=== PATIENT | female | born 1960 | race Caucasian/White ===

== ENCOUNTER 2021-06-19 08:14 | Emergency (ER) | payer MEDICAID, OTHER ==
[~2021-06-19] VITALS: Ht 162.6 cm; Wt 98.0 kg
[~2021-06-19 08:14] MED LIST: CAPTOPRIL PO
[2021-06-19 09:16] LABS: CLARITY URINE TURBID (CLEAR); COLOR URINE RED (YELLOW); KETONES URINE NEGATIVE (NEGATIVE); LEUKOCYTE ESTERASE URINE 2+ (NEGATIVE); NITRITE URINE POSITIVE (NEGATIVE); OCCULT BLOOD URINE 2+ (NEGATIVE); PROTEIN URINE 2+ (NEGATIVE); SPECIFIC GRAVITY URINE 1.013 (1.005-1.030); UROBILINOGEN URINE 0.2 E.U./dL (0.2-1.0)
[2021-06-19 09:38] VITALS: BP 127/57
[2021-06-19] MEDS ORDERED: NITR-87 MT (09:58)
[2021-06-19] MEDS ORDERED: PYR200 MT (09:58)
[2021-06-19] MEDS ORDERED: METH-773 MT (09:58)
== END 2021-06-19 10:33 | disposition home or self-care (01) ==
LOC: ER 08:57
DX: M48.02 Spinal stenosis, cervical region (principal); M54.12 Radiculopathy, cervical region; M25.511 Pain in right shoulder; M25.512 Pain in left shoulder; N39.0 Urinary tract infection, site not specified; I10 Essential (primary) hypertension; Z90.49 Acquired absence of other specified parts of digestive tract; Z79.899 Other long term (current) drug therapy
CPT/HCPCS: 73030; 81003; 99285

== ENCOUNTER 2024-12-30 12:51 | Emergency (ER) | payer MEDICAID ==
[~2024-12-30] VITALS: Ht 152.4 cm; Wt 90.0 kg
[~2024-12-30 12:51] MED LIST changes: +METH-773 MT; +NAPR-1176 MT; +NITR-87 MT; +PYR200 MT
[2024-12-30 13:05] VITALS: O2SAT 99
[2024-12-30] MEDS: KETOROLAC 30MG/ML VIAL IM ONE (15:58)
[2024-12-30] MEDS ORDERED: DICL100G58 TP (16:07)
[2024-12-30] MEDS ORDERED: METH-773 MT (16:07)
[2024-12-30 16:36] VITALS: BP 143/58; PULSE 71; RESP 18; TEMP 36.8; O2SAT 98
== END 2024-12-30 16:38 | disposition home or self-care (01) ==
LOC: ER 12:51
DX: M17.0 Bilateral primary osteoarthritis of knee (principal); I10 Essential (primary) hypertension; Z98.890 Other specified postprocedural states; Z79.899 Other long term (current) drug therapy
CPT/HCPCS: 73562; 93970; 96372; 99285; J1885; Z7610